=== PATIENT | female | born 1950 | race Two or more races ===

== ENCOUNTER 2020-05-30 23:16 | Inpatient (IN) | payer OTHER ==
[~2020-05-30] VITALS: Ht 154.9 cm; Wt 63.5 kg
[~2020-05-30 23:16] MED LIST: CLEOCIN HCL300 MG PO; INTESTINEX1 CA1 PO; SYNTHROID50 MCG; SYNTHROID75 MCG; TYLENOL-CODEINE1 TAB PO
[2020-05-30] MEDS ORDERED: DAFLONEX-XL 11300 MG (23:26)
[2020-05-30] MEDS ORDERED: SYNTHROID88 MCG (23:26)
[2020-06-04] MEDS ORDERED: CIPRO500 MG PO (12:43)
[2020-06-04] MEDS ORDERED: FLAGYL500MG PO (12:47)
[2020-06-04] MEDS ORDERED: INTESTINEX680 M1 PO (12:48)
[2020-06-04] MEDS ORDERED: PEPCID AC20 MG PO (12:49)
== END 2020-06-04 14:31 | disposition home or self-care (01) | DRG 392 ==
LOC: ER 23:16 → MEDJ 05-31 09:19 → MEDI 05-31 09:19
PROVIDERS: ADMIT Internal Medicine; ATTEND Internal Medicine
PROC: BW21ZZZ Computerized Tomography (CT Scan) of Abdomen and Pelvis (ICD-10-PCS; principal; 2020-05-31)
DX: K52.89 Other specified noninfective gastroenteritis and colitis (principal); E03.8 Other specified hypothyroidism; D72.829 Elevated white blood cell count, unspecified

== ENCOUNTER 2022-11-23 08:17 | Outpatient (CLI) | payer OTHER ==
[~2022-11-23 08:17] MED LIST changes: +CIPRO500 MG PO; +DAFLONEX-XL 11300 MG; +FLAGYL500MG PO; +INTESTINEX680 M1 PO; +PEPCID AC20 MG PO; +SYNTHROID88 MCG
== END 2022-11-23 08:31 | disposition home or self-care (01) ==
LOC: NUCLEAR 08:17
PROVIDERS: ATTEND General Practice
DX: I83.893 Varicose veins of bilateral lower extremities with other complications (principal); Z88.6 Allergy status to analgesic agent; Z88.8 Allergy status to other drugs, medicaments and biological substances

== ENCOUNTER 2022-11-24 07:24 | Outpatient (CLI) | payer OTHER | END 2022-11-24 07:26 | disposition home or self-care (01) | LOC: NUCLEAR 07:24 | PROVIDERS: ATTEND General Practice | DX: I83.893 Varicose veins of bilateral lower extremities with other complications (principal); Z88.8 Allergy status to other drugs, medicaments and biological substances; Z88.6 Allergy status to analgesic agent ==

== ENCOUNTER 2023-02-09 12:56 | Emergency (ER) | payer OTHER ==
[~2023-02-09] VITALS: Ht 154.9 cm; Wt 61.2 kg
[2023-02-09] MEDS ORDERED: TUSSIN100 MG/51 (13:06)
[2023-02-09] MEDS ORDERED: PROAIR RESPICL90 MCG (13:07)
[2023-02-09] MEDS ORDERED: SINGULAIR5 MG PO (13:07)
[2023-02-09] MEDS ORDERED: CLARITIN5 MG (13:07)
== END 2023-02-09 18:19 | disposition home or self-care (01) ==
LOC: ER 12:56
DX: B34.9 Viral infection, unspecified (principal); Z20.822 Contact with and (suspected) exposure to COVID-19

== ENCOUNTER 2024-05-30 14:33 | Emergency (ER) | payer OTHER ==
[~2024-05-30] VITALS: Ht 154.9 cm; Wt 63.0 kg
[~2024-05-30 14:33] MED LIST changes: +CLARITIN5 MG; +PROAIR RESPICL90 MCG; +SINGULAIR5 MG PO; +TUSSIN100 MG/51
[2024-05-30] MEDS ORDERED: XARELTO10 MG (15:34)
[2024-05-30] MEDS ORDERED: NEURONTIN300 MG PO (15:35)
[2024-05-30] MEDS ORDERED: ROSUVASTATIN CA10 MG PO (15:35)
[2024-05-30 17:55] LABS: HEMATOCRIT 34.9 % (36.0-45.00); HEMOGLOBIN 12.2 g/dL (12.0-15.00); MEAN CELL VOLUME 97.5 fL (80.00-100.00); MEAN CORPUSCULAR HEMOGLOBIN 34.2 pg (27.00-32.0); MEAN CORPUSCULAR HGB CONC 35.1 g/dl (32.0-36.0); PLATELET COUNT 269 K/uL (150-450); RED BLOOD COUNT 3.58 M/uL (4.00-6.00); RED CELL DISTRIBUTION WIDTH 14.2 % (11.5-14.5)
[2024-05-30 18:18] LABS: CALCIUM 9.2 mg/dL (8.5-10.1); CREATININE SERUM 0.74 mg/dL (0.55-1.02); GFR 77.14; POTASSIUM 5.06 mEq/L (3.5-5.1)
== END 2024-05-30 19:29 | disposition home or self-care (01) ==
LOC: ER 14:34
DX: R00.2 Palpitations (principal); Z88.6 Allergy status to analgesic agent; Z91.013 Allergy to seafood; I10 Essential (primary) hypertension; E03.8 Other specified hypothyroidism

== ENCOUNTER 2024-06-26 14:42 | Emergency (ER) | payer OTHER ==
[~2024-06-26] VITALS: Ht 154.9 cm; Wt 63.0 kg
[~2024-06-26 14:42] MED LIST changes: +NEURONTIN300 MG PO; +ROSUVASTATIN CA10 MG PO; +XARELTO10 MG
[2024-06-26] MEDS ORDERED: DEXAMETHASONE SODIUM PHOSPHATE 4 MG/ML VIAL IM STA (16:34)
[2024-06-26] MEDS ORDERED: LIDOCAINE HCL 1% 10ML VIAL IJ ONE (18:30)
[2024-06-26] MEDS ORDERED: DEXAMETHASONE4 MG PO (19:17)
[2024-06-26] MEDS ORDERED: AMOXICILLIN500 M1 PO (19:17)
== END 2024-06-26 19:52 | disposition home or self-care (01) ==
LOC: ER 14:42
DX: L60.0 Ingrowing nail (principal); Z88.6 Allergy status to analgesic agent; Z91.013 Allergy to seafood